=== PATIENT | female | born 1990 | race Hispanic/Latino ===

== ENCOUNTER 2017-07-20 10:37 | Emergency (ER) | payer BC ==
[~2017-07-20] VITALS: Ht 157.5 cm; Wt 59.0 kg
[2017-07-20 13:23] LABS: BILIRUBIN,URINE NEGATIVE (NEGATIVE); CLARITY,URINE CLEAR (CLEAR); COLOR,URINE YELLOW (YELLOW); KETONES,URINE NEGATIVE (NEGATIVE); LEUKOCYTE ESTERASE ,URINE NEGATIVE (NEGATIVE); NITRITE,URINE NEGATIVE (NEGATIVE); PROTEIN,URINE DIPSTICK NEGATIVE (NEGATIVE); URINE UROBILINOGEN 0.2 mg/dL (0.2 - 1)
[2017-07-20 13:29] LABS: PREGNANCY TEST, URINE NEGATIVE (NEGATIVE)
[2017-07-20 13:47] LABS: BACTERIA,URINE FEW /HPF; EPITHELIAL CELLS,URINE FEW /LPF; WBC,URINE (MAN) 0-5 /HPF (0-5)
[2017-07-20 15:54] LABS: BASOPHILS % 0.4 % (0.0-1.0); EOSINOPHILS # (AUTO) 0.1 (0.0-0.4); HEMATOCRIT 40.2 % (34.2-44.1); HEMOGLOBIN 13.5 g/dL (12.0-16.0); LYMPHOCYTES # (AUTO) 2.1 (1.0-3.2); LYMPHOCYTES % 19.1 % (18.0-39.1); MEAN CORPUSCULAR HEMOGLOBIN 29.4 pg (28-32); MEAN CORPUSCULAR HGB CONC 33.6 g/dL (31-35); MEAN CORPUSCULAR VOLUME 87.6 fL (81-99); MONOCYTES # (AUTO) 0.6 (0.2-0.8); MONOCYTES % 5.3 % (4.4-11.3); NEUTROPHILS # (AUTO) 8.3 (2.1-6.9); NEUTROPHILS % 73.8 % (38.7-80.0); PLATELET COUNT 240 x10e3/uL (140-360); RED BLOOD COUNT 4.59 x10e6/uL (3.6-5.1); RED CELL DISTRIBUTION WIDTH 12.5 % (11.7-14.4)
[2017-07-20 16:18] LABS: ALANINE AMINOTRANSFERASE 15 IU/L (0-55); ALBUMIN 3.8 g/dL (3.5-5.0); ALBUMIN/GLOBULIN RATIO 1.1 (0.8-2.0); ALKALINE PHOSPHATASE 56 IU/L (40-150); AMYLASE 68 U/L (25-125); ANION GAP 11.4 mmol/L (8-16); BLOOD UREA NITROGEN 6 mg/dL (7-26); BUN/CREATININE RATIO 8 (6-25); CARBON DIOXIDE 25 mmol/L (22-29); CHLORIDE 107 mmol/L (98-107); CREATININE, SERUM 0.73 mg/dL (0.57-1.11); EST GLOMERULAR FILTRATION RATE > 60 ML/MIN (60-); GLUCOSE 89 mg/dL (74-118); LIPASE 13 U/L (8-78); POTASSIUM 3.4 mmol/L (3.5-5.1); SODIUM 140 mmol/L (136-145)
--- NOTE | 2017-07-20 17:34 | Diagnostic Imaging Report ---
PROCEDURE: CT ABDOMEN AND PELVIS WITHOUT CONTRAST TECHNIQUE: The abdomen and pelvis were scanned utilizing a multidetector helical scanner from the diaphragm to the lesser trochanter after the oral administration of water. No IV contrast was administered per protocol. Coronal and sagittal multiplanar reformations were obtained. COMPARISON: [facility], CT, CT ABDOMEN/PELVIS , 04/19/2017, 1:43. INDICATIONS: STOMACH PAINS, HEMATURIA, PAIN WHEN URINATING FINDINGS: ABSENCE OF INTRAVENOUS CONTRAST DECREASES SENSITIVITY FOR DETECTION OF FOCAL LESIONS AND VASCULAR PATHOLOGY. LOWER THORAX: Unremarkable. HEPATOBILIARY: No focal hepatic lesions. No biliary ductal dilatation. SPLEEN: No splenomegaly. PANCREAS: No focal masses or ductal dilatation. ADRENALS: No adrenal nodules. KIDNEYS/URETERS. Single left kidney is again identified. 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 No renal or ureteral calculi, hydronephrosis, or obstruction. No renal contour abnormalities or significant perinephric stranding. PELVIC ORGANS/BLADDER: Bladder is unremarkable, without focal lesions or wall thickening. No bladder calculi. Uterus is unremarkable. A 3.1 x 3.7 cm fluid density simple cyst in the left ovary. PERITONEUM / RETROPERITONEUM: Trace free fluid in the pelvic cul-de-sac. LYMPH NODES: No lymphadenopathy. VESSELS: Unremarkable. GI TRACT: No bowel dilation or evidence of obstruction. No pericolonic inflammatory changes. Stomach is unremarkable. BONES AND SOFT TISSUES: No acute bony abnormalities. Soft tissues are unremarkable. IMPRESSION: 1. No renal, ureteral, or bladder calculi. No hydronephrosis or obstruction. 2. 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 3.7 cm left ovarian simple follicular cyst. Urbano Rodriguez M.D. Dictated by: Urbano Rodriguez M.D. on 07/20/2017 at 17:43 Electronically approved by: Urbano Rodriguez M.D. on 07/20/2017 at 17:43
== END 2017-07-20 17:50 | disposition home or self-care (01) ==
LOC: ER 10:37
DX: R30.0 Dysuria (principal); R31.9 Hematuria, unspecified; R11.0 Nausea; R10.9 Unspecified abdominal pain
CPT/HCPCS: 36415; 74176; 80053; 81001; 81025; 82150; 83690; 85025; 87086; 99283

== ENCOUNTER 2021-12-14 12:33 | Emergency (ER) | payer SELFPAY ==
[~2021-12-14] VITALS: Ht 157.5 cm; Wt 59.0 kg
[2021-12-14] MEDS ORDERED: GABAPENTIN300 MG PO (17:15)
== END 2021-12-14 17:44 | disposition home or self-care (01) ==
LOC: ER 15:34
DX: M54.42 Lumbago with sciatica, left side (principal); N80.9 Endometriosis, unspecified
CPT/HCPCS: 72131; 81025; 99283